=== PATIENT | male | born 1985 | race African-American/Black ===

== ENCOUNTER 2021-04-04 20:48 | Emergency (ER) | payer OTHER ==
[~2021-04-04] VITALS: Ht 180.3 cm; Wt 97.7 kg
[2021-04-04] MEDS ORDERED: PROP20TA18 PO (21:00)
[2021-04-04] MEDS ORDERED: CLON0.1T2 PO (21:00)
[2021-04-04] MEDS ORDERED: QUET200T PO (21:00)
[2021-04-04] MEDS ORDERED: KETOROLAC TROMETHAMINE 30 MG/ML VIAL IM ONE (21:15)
[2021-04-04] MEDS ORDERED: QUEtiapine FUMARATE 100 MG TABLET PO ONE (21:15)
[2021-04-04] MEDS ORDERED: ACETAMINOPHEN 500 MG TABLET PO ONE (21:15)
[2021-04-04] MEDS ORDERED: LIDOCAINE 5% TRANSDERMAL PATCH TD ONE (21:15)
[2021-04-04 22:02] VITALS: BP 163/60
== END 2021-04-04 22:33 | disposition home or self-care (01) ==
LOC: EMS 20:48
DX: M54.5 Low back pain (principal); F41.9 Anxiety disorder, unspecified; F32.9 Major depressive disorder, single episode, unspecified; I10 Essential (primary) hypertension; Z91.14 Patient's other noncompliance with medication regimen
CPT/HCPCS: 96372; 99284; J1885